=== PATIENT | male | born 1940 | race Caucasian/White ===

== ENCOUNTER 2024-07-20 12:05 | Outpatient (CLI) | payer MEDICARE, BC, SELFPAY ==
[2024-07-20] VITALS (12 sets, daily range): BP systolic 155–177; BP diastolic 67–85; PULSE 53–61; RESP 12–22; TEMP 36.4; O2SAT 97–100
--- NOTE | 2024-07-20 | PATH_ITS ---
[facility] Accession Number: [id number] No. of containers..02 Tissue . 01 Material submitted: . PART A: bone marrow - BONE MARROW CORE PART B: bone marrow - BONE MARROW CLOT . 01 Clinical history: . POST SPLENECTOMY FOR HEREDITARY SPHEROCYTOSIS . 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 - Variable hypercellular marrow for the age (30-40% in areas without lymphoid aggregates) with trilineage hematopoiesis, mildly increased megakaryopoiesis with maturation. - Increased polytypic/polyclonal plasma cells (5-7%) by immunohistochemical stains evaluation. - No increased blasts seen (less than 1%). - Iron is decreased, and no ring sideroblasts seen. - Negative for increased reticulin fibrosis. - Chromosomal analysis test is pending. - FISH for small B-cell lymphoma panel is pending. - FISH for multiple myeloma is pending. - See comment. -- COMMENT: Flow cytometry of the concurrent bone marrow aspirate specimen shows: Small CD5 positive monotypic B-cell population (dim lambda light chain restricted) identified, see comments. No aberrant T-cell populations. No increased or aberrant blasts. No definite monotypic plasma cell population (see flow report for more details [phone]). Together the morphologic and immunophenotypic evaluation of bone marrow shows bone marrow involvement by monoclonal B cell lymphocytosis (nodular infiltration). The most recent absolute lymphocytes count appears to be normal, however flow cytometry of peripheral blood to evaluate for CLL/SLL in addition to evaluation of lymphadenopathy is essential for establishing diagnosis of chronic lymphocytic leukemia/small lymphocytic lymphoma CLL/SLL per the WHO 5th edition. Hypergammaglobulinemia can be seen in CLL/SLL which might explain the increased IGA levels, without M spike (test performed in 06/17/2024). Correlation with cytogenetics and chromosomal analysis is recommended and will be reported in addendum. TXN 07/26/2024 1133 Local . 01 Electronically signed: . Suri Shelby MD, Pathologist NPI- [id number] . 01 Gross description: . A. Received in formalin with two patient identifiers and bone marrow biopsy per requisition, and consists of a 0.8 x 0.2 x 0.2 cm cylindrical core of hemorrhagic bone which is entirely submitted in cassette A1 following decalcification in [employer]. Also received in the same container is a 0.8 x 0.5 x 0.3 cm aggregate of clotted blood, which is filtered, wrapped, and entirely submitted in cassette A2. B. Received in formalin with two patient identifiers and aspirate per requisition, and consists of a 2.2 x 1.0 x 0.5 cm aggregate of clotted blood, which is filtered and entirely submitted in cassette B1. ([id number]) /MRV 07/21/2024 1701 Local . 01 Microscopic: . CLINICAL HISTORY: 84 years old patient with history of hereditary spherocytosis, status post splenectomy. And history of elevated IGA. . - PERIPHERAL BLOOD SMEAR: No accompanied peripheral smear is received. . HEMOGRAM (Per report dated 07/20/2024): WBC: 10.0 x K/uL RBC: 4.8 x K/uL HGB: 15.4 g/dL HCT: 42.5% MCV: 87.9 fL PLT: 293 x K/uL Absolute lymphocytes count: 1.7 k/uL . - BONE MARROW ASPIRATE SMEARS PREPARATION: The aspirates are cellular, specular, and adequate for morphologic examination and shows. . Erythroid series: Present with unremarkable morphology and progressive maturation. No evidence of dysplasia. Myeloid series: Present with unremarkable morphology and progressive maturation. No evidence of dysplasia. Blasts are not increased. Megakaryocytes: Present with unremarkable morphology. Lymphocytes are slightly increased with small cell size and unremarkable morphology. - BONE MARROW ASPIRATE SMEAR MANUAL DIFFERENTIAL (200 CELLS): - BLASTS: 1.5% . GRANULOCYTIC SERIES: 44.5% Promyelocytes: 0% Neutrophilic myelocytes and metamyelocytes: 10% Segmented neutrophils and bands: 31.0% Eosinophils and its precursors: 3.5% Basophils and its precursors: 0% . ERYTHROCYTIC SERIES: 30.0% Pronormoblasts: 0% Other normoblasts: 30.0% . OTHER SERIES: 24.0% Lymphocytes: 18.5% Monocytes: 4.0% Plasma cells: 1.5% - BONE MARROW BIOPSY AND CLOT: Adequate and shows similar findings including multiple large lymphoid nodular aggregates with irregular borders and interstitial and boy-trabecular distribution, no diffuse infiltration pattern is seen. The lymphoid nodules composed of mature small size lymphocytes with scattered T cells and plasma cells. The lymphoid nodules occupying approximately 10-15% of marrow space. M:E ratio: 1:1 by immunostains. Cellularity: Variable hypercellular for the age 30-40% (without including lymphoid aggregates to cellularity). Megakaryocytes: Mildly increased, with unremarkable morphology. - IMMUNOHISTOCHEMICAL STAINS ARE PERFORMED ON CLOT WITH APPROPRIATE CONTROLS: The atypical lymphoid nodules are composed mainly of small size B cells with scattered intermixed T cells and have CLL/SLL immunohistochemical profile, the B cells are: POSITIVE for: CD20 (intermediate variable expression), PAX-5, CD5 (weak), BCL-2, CD43, and LEF1. NEGATIVE for: CD10, BCL-6, and cyclin D1. CD138 shows increased plasma cells 5-7% and are polyclonal by kappa and lambda light chain immune stains. CD3, CD5, and CD43 highlight also scattered unremarkable T cells. CD34 shows no increased in blasts population <1% CD117 highlight occasional mast cells. CD71 highlights adequate erythroid elements. CD15 highlights myeloid elements. FACTORVIII highlights mildly increased megakaryocytes with unremarkable morphology. - SPECIAL STAINS PERFORMED ON CLOT, AND CORE BIOPSY WITH APPROPRIATE CONTROLS: Iron special stain (clot): Decreased with no increased ring sideroblasts. Reticulin special stain (core biopsy): Negative for reticulin fibrosis. Technical Note: This test was developed, and the performance characteristics were validated by [facility]. It has not been cleared or approved by the Food and Drug Administration. . . 01 Pathologist provided ICD-10: C85.10 . 01 CPT . 872513, 421691, 243461, 76280, 544995, 713323, [id number], V67203 Specimen Comment: A courtesy copy of this report has been sent to [phone] Specimen Comment: Health Pathology Performed at: [address] [address], [place], [place] [id number] MD Rashaun Yousif MD Phone: [phone]
--- NOTE | 2024-07-20 12:10 | DI.CT.S_ITS ---
PROCEDURE: CT BIOPSY BONE DEEP INDICATIONS: bone marrow biopsy TECHNIQUE: The indications, alternatives, benefits, risks, and possible complications of the procedure were communicated to the patient. Informed written consent from the patient was obtained and placed in the chart. Continuous EKG and hemodynamic monitoring was started by trained personnel. The patient was brought to the CT suite and rubber mill tender spiral CT imaging was performed with localization grid. The appropriate site for percutaneous access to the biopsy target was marked, was prepped and draped sterilely, and was infused with local anaesthesia. Under CT guidance, a core biopsy trocar and needle set was advanced to the biopsy target, and specimen(s) were obtained. The trocar and needle were then removed, and the patient was sent for post-procedure monitoring. COMPARISON: None. FINDINGS: Biopsy site: Right iliac bone. Needle: Jamshidi biopsy needle with introducer trocar. Number of passes: Once Medications: 1% lidocaine for local anaesthesia. Complications: None. IMPRESSION: Successful CT-guided biopsy of right iliac bone Marrow. Dictated by: Link Fairbanks M.D. on 07/20/2024 at 16:17 Approved by: Link Fairbanks M.D. on 07/20/2024 at 16:19
[2024-07-20 12:55] LABS: Prothrombin Time 11.5 SECONDS (9.4-12.5)
[2024-07-20 12:57] LABS: PTT Partial Thromboplastin Tim 34 SECONDS (25.1-36.5)
[2024-07-20 13:08] LABS: Hematocrit 42.5 % (41-53); Hemoglobin 15.4 g/dL (13.5-17.5); Mean Corpuscular HGB Conc 36.2 % (30-36); Mean Corpuscular Hemoglobin 31.8 PG (26-34); Mean Corpuscular Volume 87.9 fL (80-100); Platelet Count 293 X10^3/uL (150-400); Red Blood Cell Count 4.83 X10^6/uL (4.5-5.9); Red Cell Distribution Width 14.2 % (11.6-14.8)
[2024-07-20 13:09] LABS: Add Manual Diff / Slide Review YES
[2024-07-20 13:25] LABS: Neutrophils Absolute Manual 7200 /uL (3000-5900); Total Cells Counted 100
[2024-07-20 13:28] LABS: Acanthocytes 3+
[2024-07-20] MEDS: LIDOCAINE 1% 20 ML INJ (13:30)
== END 2024-07-20 15:21 | disposition home or self-care (01) ==
LOC: CT 12:09
PROVIDERS: Radiology Diagnostic Radiology; PCP Nurse Practitioner; Referring Provider Internal Medicine Medical Oncology; Visit Provider Internal Medicine Medical Oncology
DX: R76.8 Other specified abnormal immunological findings in serum (principal); M35.9 Systemic involvement of connective tissue, unspecified; D58.0 Hereditary spherocytosis; Z90.81 Acquired absence of spleen
CPT/HCPCS: 20225; 77012; 85007; 85025; 85610; 85730; J2250; J3010